=== PATIENT | female | born 1970 | race Caucasian/White ===

== ENCOUNTER → 2017-01-29 | Outpatient (CLI) | payer OTHER | END | disposition home or self-care (01) | LOC: RADUSWWP 12:21 | PROVIDERS: ATTEND Internal Medicine | DX: M79.604 Pain in right leg (principal); M79.605 Pain in left leg | CPT/HCPCS: 93922 ==

== ENCOUNTER 2018-05-21 11:59 | Emergency (ER) | payer OTHER ==
[2018-05-21 12:08] VITALS: BP 153/84; PULSE 83; RESP 18; TEMP 98.2
[2018-05-21] MEDS ORDERED: KETOROLAC 60 MG/2 ML VIAL IM STA (12:40)
--- NOTE | 2018-05-21 12:45 | ED ---
General Adult HPI - General Chief complaint: Extremity Problem,Nontraumatic Stated complaint: hip pain Time Seen by Provider: 05/21/18 12:33 Source: patient, RN notes reviewed Mode of arrival: wheelchair Limitations: no limitations - History of Present Illness Initial comments: Patient's a 48-year-old female with significant past medical history for chronic low back pain and surgery, presenting to the emergency room today with a chief complaint of increased pain to the right hip area. She does admit that symptoms started approximately 5 days ago. Was seen at [facility] had an x-ray obtained 4 days ago. She does admit that she was given a morphine shot sometime. She's been using naproxen for the pain. She states she 's had increased pain with movements, and from a sitting to standing position. She states even with ambulation she feels increased pain to the right hip area with some radiation down to the mid right thigh. She denies any bowel or bladder construct times. Denies any saddle anesthesia. Patient denies any other complaints or symptoms. Patient denies any recent fever, chills, shortness of breath, chest pain, back pain, abdominal pain, nausea or vomiting, headaches or visual changes, or any other complaints. - Related Data Home Medications Medication Instructions Recorded Confirmed Fenofibrate [Lofibra] 54 mg PO DAILY 04/20/17 05/21/18 Irbesartan 300 mg PO DAILY 04/20/17 05/21/18 Spironolactone [Aldactone] 50 mg PO DAILY 05/21/18 05/21/18 Previous Rx's Medication Instructions Recorded Dexamethasone 0.75 mg PO DIRECTED #12 tablet 05/21/18 Allergies Allergy/AdvReac Type Severity Reaction Status Date / Time iodine Allergy Rash/Hives Verified 05/21/18 12:19 shellfish derived Allergy Rash/Hives Verified 05/21/18 12:19 prednisone AdvReac HEART Verified 05/21/18 12:19 RACING Review of Systems ROS Statement: Those systems with pertinent positive or pertinent negative responses have been documented in the HPI. ROS Other: All systems not noted in ROS Statement are negative. Past Medical History Past Medical History: Hypertension Additional Past Medical History / Comment(s): 12/27/14 Pt presented to [facility] ER with inermittent L sided chest pain which today has become constant. Other HX : degenerative disc disease, chronic low back pain, migraines, palpatations, occasional bilateral ear infections, borderline high cholesterol-has been on med for this in the past. History of Any Multi-Drug Resistant Organisms: None Reported Past Surgical History: Adenoidectomy, Back Surgery, Cholecystectomy, Orthopedic Surgery, Tubal Ligation Additional Past Surgical History / Comment(s): 02/2014 cervical fusion surgery, low back surgery, left elbow surgery, L shoulder rotator cuff sx, colonoscopy with benign polypectomy. Past Anesthesia/Blood Transfusion Reactions: No Reported Reaction Additional Past Anesthesia/Blood Transfusion Reaction / Comment(s): Pt has never recieved blood. Past Psychological History: Depression Smoking Status: Never smoker Past Alcohol Use History: Rare Past Drug Use History: None Reported - Past Family History Father Family Medical History: Coronary Artery Disease (CAD), Diabetes Mellitus Additional Family Medical History / Comment(s): Father has had quad bypass Mother Family Medical History: Diabetes Mellitus, Hypertension General Exam - General Exam Comments Initial Comments: General: The patient is awake and alert, in no distress, and does not appear acutely ill. Neck: The neck is supple, there is no tenderness or JVD. Cardiovascular: There is a regular rate and rhythm. No murmur, rub or gallop is appreciated. Respiratory: Lungs are clear to auscultation, respirations are non-labored, breath sounds are equal. No wheezes, stridor, rales, or rhonchi. Musculoskeletal: Normal ROM, no tenderness. Normal appearance of the thoracic , lumbar spine with no step-offs or deformities. He does have normal appearance of the right hip no obvious deformity. Shows good range of motion. Patient does have some tenderness with flexion at the hip area. Neurological: A&O x 3. CN II-XII intact, There are no obvious motor or sensory deficits. Coordination appears grossly intact. Speech is normal. Skin: Skin is warm and dry and no rashes or lesions are noted. Psychiatric: Cooperative, appropriate mood & affect, normal judgment. Limitations: no limitations Course Vital Signs 05/21/18 12:05 Temperature 98.2 F Pulse Rate 83 Respiratory 18 Rate Blood Pressure 153/84 O2 Sat by Pulse 97 Oximetry Medical Decision Making - Medical Decision Making Patient will be given shot of Toradol here in the emergency room will be discharged on continued on anti-inflammatories also started on steroid to help reduce inflammation. Patient is advised follow-up family physician for further evaluation and possible MRI of her lower back. Advised return if any symptoms increase or worsen or for any other concerns. Disposition Clinical Impression: Acute lumbar radiculopathy Disposition: HOME SELF-CARE Condition: Good Instructions: Lumbar Radiculopathy (ED) Additional Instructions: Please use medication as discussed. Please follow-up with orthopedic/family doctor in the next 2 days of symptoms have not improved. Please return to emergency room if the symptoms increase or worsen or for any other concerns. Prescriptions: Dexamethasone 0.75 mg PO DIRECTED #12 tablet Is patient prescribed a controlled substance at d/c from ED?: No Referrals: Ej Vasquez MD [Primary Care Provider] - 1-2 days Time of Disposition: 12:45
== END 2018-05-21 13:04 | disposition home or self-care (01) ==
LOC: EC 11:59
DX: M54.16 Radiculopathy, lumbar region (principal); I10 Essential (primary) hypertension; Z98.890 Other specified postprocedural states; Z79.899 Other long term (current) drug therapy; Z91.048 Other nonmedicinal substance allergy status; Z91.013 Allergy to seafood; Z88.8 Allergy status to other drugs, medicaments and biological substances
CPT/HCPCS: 99283; 96372; J1885

== ENCOUNTER 2019-03-08 09:59 | Emergency (ER) | payer OTHER ==
[2019-03-08 10:25] VITALS: RESP 18
[2019-03-08] MEDS ORDERED: KETOROLAC 30 MG/ML 1 ML VIAL IM STA (10:39)
[2019-03-08] MEDS ORDERED: ORPHENADRINE 30 MG/ML 2 ML VIAL IM STA (10:39)
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
--- NOTE | 2019-03-08 11:07 | XR ---
EXAMINATION TYPE: XR lumbar spine 2 or 3V , 3 VIEWS DATE OF EXAM ORDERED: 03/08/2019 HISTORY: pain, fall. COMPARISON: None. FINDINGS: The gallbladder is been removed. There is a gentle dextroscoliosis. Vertebral body height and alignment are maintained. There is no spondylolysis or spondylolisthesis. N o fractures are seen. The pedicles are intact. IMPRESSION: 1. NO ACUTE OSSEOUS LESION. 2. MILD DEXTROSCOLIOSIS.
--- NOTE | 2019-03-08 11:09 | XR ---
EXAMINATION TYPE: XR ankle complete RT , 3 VIEWS. DATE OF EXAM ORDERED: 03/08/2019 HISTORY: pain, fall. COMPARISON: None. FINDINGS: No fracture, dislocation or ankle joint effusion is seen. Note is made of both plantar and Achilles calcaneal spurs. IMPRESSION: NO ACUTE OSSEOUS LESION.
[2019-03-08 12:01] VITALS: BP 178/101; PULSE 69; TEMP 97.7
== END 2019-03-08 12:01 | disposition home or self-care (01) ==
LOC: EC 09:59
DX: S93.401A Sprain of unspecified ligament of right ankle, initial encounter (principal); S86.111A Strain of other muscle(s) and tendon(s) of posterior muscle group at lower leg level, right leg, initial encounter; H66.93 Otitis media, unspecified, bilateral; M41.86 Other forms of scoliosis, lumbar region; M54.5 Low back pain; I10 Essential (primary) hypertension; E78.00 Pure hypercholesterolemia, unspecified; Z88.8 Allergy status to other drugs, medicaments and biological substances; Z91.013 Allergy to seafood; Z91.048 Other nonmedicinal substance allergy status; Z79.899 Other long term (current) drug therapy; Z98.1 Arthrodesis status; Z98.890 Other specified postprocedural states; W01.0XXA Fall on same level from slipping, tripping and stumbling without subsequent striking against object, initial encounter
CPT/HCPCS: 72100; 73610; 99284; 96372 ×2; J2360; J1885

== ENCOUNTER 2019-04-09 18:58 | Emergency (ER) | payer OTHER ==
[2019-04-09 19:09] VITALS: BP 139/92; PULSE 82; RESP 16; TEMP 99.5
--- NOTE | 2019-04-09 19:41 | ED ---
General Adult HPI - General Chief complaint: ENT Stated complaint: Ear drum repair surgery, bleeding post surgery Time Seen by Provider: 04/09/19 19:11 Source: patient Mode of arrival: ambulatory Limitations: no limitations - History of Present Illness Initial comments: 49-year-old female patient presents to the emergency department today for evaluation of bleeding after surgery. The patient states that she had a left mastoidectomy with bony reconstruction performed this morning at [facility]. Her surgeon was Dr. Pizano. Patient states that she was told it would be very minimal bleeding with this procedure. States that her dressing is becomes saturated with blood so she presented here for further evaluation. She'll contact the office and was instructed to come to the office in the morning however she does not have transportation. She denies any significant pain to the ear. Denies fever or chills. Denies any dizziness or weakness. - Related Data Home Medications Medication Instructions Recorded Confirmed Fenofibrate [Lofibra] 54 mg PO DAILY 04/20/17 05/21/18 Irbesartan 300 mg PO DAILY 04/20/17 05/21/18 Spironolactone [Aldactone] 50 mg PO DAILY 05/21/18 05/21/18 Previous Rx's Medication Instructions Recorded Dexamethasone 0.75 mg PO DIRECTED #12 tablet 05/21/18 Amoxicillin/Potassium Clav 1 tab PO BID #14 tab 03/08/19 [Augmentin 875-125 Tablet] Ibuprofen 600 mg PO TID #30 tablet 03/08/19 Orphenadrine [Norflex] 100 mg PO BID #14 tablet.er 03/08/19 Allergies Allergy/AdvReac Type Severity Reaction Status Date / Time iodine Allergy Rash/Hives Verified 04/09/19 19:08 shellfish derived Allergy Rash/Hives Verified 04/09/19 19:08 prednisone AdvReac HEART Verified 04/09/19 19:08 RACING Review of Systems ROS Statement: Those systems with pertinent positive or pertinent negative responses have been documented in the HPI. ROS Other: All systems not noted in ROS Statement are negative. Past Medical History Past Medical History: Hypertension Additional Past Medical History / Comment(s): 12/27/14 Pt presented to [facility] ER with inermittent L sided chest pain which today has become constant. Other HX: degenerative disc disease, chronic low back pain, migraines, palpatations, occasional bilateral ear infections, borderline high cholesterol-has been on med for this in the past. History of Any Multi-Drug Resistant Organisms: None Reported Past Surgical History: Adenoidectomy, Back Surgery, Cholecystectomy, Orthopedic Surgery, Tubal Ligation Additional Past Surgical History / Comment(s): 02/2014 cervical fusion surgery, low back surgery, left elbow surgery, L shoulder rotator cuff sx, colonoscopy with benign polypectomy. Mastoidectomy Past Anesthesia/Blood Transfusion Reactions: No Reported Reaction Additional Past Anesthesia/Blood Transfusion Reaction / Comment(s): Pt has never recieved blood. Past Psychological History: Depression Smoking Status: Never smoker Past Alcohol Use History: Rare Past Drug Use History: None Reported - Past Family History Father Family Medical History: Coronary Artery Disease (CAD), Diabetes Mellitus Additional Family Medical History / Comment(s): Father has had quad bypass Mother Family Medical History: Diabetes Mellitus, Hypertension General Exam Limitations: no limitations General appearance: alert, in no apparent distress, other (This is a well- developed, well-nourished adult female patient in no acute distress. Vital signs upon presentation are temperature 99.5F, pulse 82, respiration 16, blood pressure 139/92, pulse ox 99% on room air.) ENT exam: Present: mucous membranes moist, other (Patient has incision surrounding the left ear. These are well approximated with sutures. There is packing in the ear canal which is saturated with blood. There is no active bleeding noted. No surrounding erythema.). Absent: normal exam Neck exam: Present: normal inspection. Absent: tenderness, meningismus, lymphadenopathy Respiratory exam: Present: normal lung sounds bilaterally. Absent: respiratory distress, wheezes, rales, rhonchi, stridor Cardiovascular Exam: Present: regular rate, normal rhythm, normal heart sounds. Absent: systolic murmur, diastolic murmur, rubs, gallop, clicks Neurological exam: Present: alert, oriented X3, CN II-XII intact Psychiatric exam: Present: normal affect, normal mood Skin exam: Present: warm, dry, intact, normal color. Absent: rash Course Vital Signs 04/09/19 19:06 Temperature 99.5 F Pulse Rate 82 Respiratory 16 Rate Blood Pressure 139/92 O2 Sat by Pulse 99 Oximetry Medical Decision Making - Medical Decision Making 49-year-old female patient presents to the emergency department today for evaluation of bleeding from the left ear incisions. Physical examination did reveal incision surrounding the left ear that are well approximated with sutures. No surrounding erythema. No active bleeding. Dressing was changed. Patient monitored after ambulating to the department, recheck the dressing and noted very small amount of bloody drainage. She'll be discharged at this time to follow-up with her surgeon for further evaluation 1-2 days. Return parameters were discussed in detail. She verbalizes understanding and agrees with this plan. Disposition Clinical Impression: Post-op bleeding Disposition: HOME SELF-CARE Condition: Good Instructions (If sedation given, give patient instructions): Care For Your Stitches (ED), Acute Wound Care (ED) Additional Instructions: Increase fluids. Rest. Follow-up with your surgeon for further evaluation as soon as possible. Return to the emergency department immediately for any new, worsening, or concerning symptoms. Is patient prescribed a controlled substance at d/c from ED?: No Referrals: Danis Marie MD [REFERRING] - 1-2 days Time of Disposition: 19:41
== END 2019-04-09 20:24 | disposition home or self-care (01) ==
LOC: EC 18:58
DX: H95.41 Postprocedural hemorrhage of ear and mastoid process following a procedure on the ear and mastoid process (principal); I10 Essential (primary) hypertension; Z79.899 Other long term (current) drug therapy; Z91.048 Other nonmedicinal substance allergy status; Z91.013 Allergy to seafood; Z88.8 Allergy status to other drugs, medicaments and biological substances; Z98.1 Arthrodesis status
CPT/HCPCS: 99283

== ENCOUNTER 2019-11-16 16:42 | Emergency (ER) | payer OTHER ==
[2019-11-16 16:51] VITALS: PULSE 78; RESP 18
[2019-11-16] MEDS ORDERED: CYCLOBENZAPRINE 10MG STARTER 3 TAB BTL PO STA (17:15)
[2019-11-16] MEDS ORDERED: HYDROcodone/APAP 5-325MG 1 EACH TAB PO STA (17:15)
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
[2019-11-16] MEDS ORDERED: LOSARTAN 50 MG TAB PO STA (18:52)
[2019-11-16 19:05] VITALS: BP 197/107; TEMP 98
== END 2019-11-16 19:09 | disposition home or self-care (01) ==
LOC: EC 16:42
DX: R51 Headache (principal); S39.012A Strain of muscle, fascia and tendon of lower back, initial encounter; S46.911A Strain of unspecified muscle, fascia and tendon at shoulder and upper arm level, right arm, initial encounter; E78.00 Pure hypercholesterolemia, unspecified; I10 Essential (primary) hypertension; Z79.899 Other long term (current) drug therapy; Z86.14 Personal history of Methicillin resistant Staphylococcus aureus infection; Z88.8 Allergy status to other drugs, medicaments and biological substances; Z91.013 Allergy to seafood; Z91.041 Radiographic dye allergy status; Z98.1 Arthrodesis status; V43.52XA Car driver injured in collision with other type car in traffic accident, initial encounter; W22.12XA Striking against or struck by front passenger side automobile airbag, initial encounter; Y92.410 Unspecified street and highway as the place of occurrence of the external cause; Y93.89 Activity, other specified
CPT/HCPCS: 70450; 70486; 72110; 72170; 99284